=== PATIENT | male | born 1970 | race Caucasian/White ===

== ENCOUNTER 2020-03-29 11:29 | Emergency (ER) | payer OTHER, SELFPAY ==
--- NOTE | ~2020-03-29 | US_ITS ---
EXAMINATION: US venous doppler [facility] EXAM DATE: 03/29/2020 12:51 INDICATION: Left leg pain and swelling. TECHNIQUE: Multiple grayscale, color flow and Doppler images of the left lower extremity deep venous system were obtained and reviewed. There is no prior study for comparison. FINDINGS: The left common femoral, femoral and profunda veins demonstrate normal color flow, respirat ory variation, augmentation and compressibility. Compressibility, color flow confirmed within the le ft popliteal, posterior tibial, peroneal, and greater saphenous veins. IMPRESSION: 1. No left lower extremity deep venous thrombosis. Reviewed, dictated and finalized at location B. [facility]
[2020-03-29 11:47] VITALS: BP 138/93; PULSE 105; RESP 16; TEMP 36.4; O2SAT 98
--- NOTE | 2020-03-29 12:15 | ED.EXTPRO ---
HPI - Extremity Problem General Chief complaint: Extremity Problem,Nontraumatic Stated complaint: L LOWER LEG SWELLING Time Seen by Provider: 03/29/20 11:53 Source: patient Mode of arrival: ambulatory Limitations: no limitations History of Present Illness HPI Narrative: This is a 49 year old male that presents to the ER for left calf pain and swelling since yesterday. Reports no known injury or trauma. Reports he was concerned he may have a blood clot which prompted him to be seen. Denies fever, or erythema. Related Data Allergies Allergy/AdvReac Type Severity Reaction Status Date / Time No Known Allergies Allergy Unverified 05/29/16 02:29 Review of Systems Review of Systems: Narrative: CONSTITUTIONAL: Denies fever CARDIOVASCULAR: Denies chest pain RESPIRATORY: Denies dyspnea. SKIN: Denies rash MUSCULOSKELETAL: Reports myalgia. Denies joint pain All systems reviewed & are unremarkable except as noted in HPI and below PMFSH Past Medical History Medical History (Updated 03/29/20 @ 13:54 by Lizet Simental PA-C) History of ADHD History of anxiety History of hypertension Exam Narrative: Exam Narrative: GENERAL: Well-appearing, obese, and in no acute distress. HEAD: Normocephalic, atraumatic. EYES: EOMI. CHEST: Clear to auscultation. No respiratory distress. No wheezes rales or rhonchi HEART: Regular rate and rhythm. No murmur heard. Normal peripheral pulses. EXTREMITIES: Normal range of motion. No edema. Mild tenderness to palpation of the left calf. Normal DP pulses, normal sensation SKIN: Warm, dry, no rash. NEURO: No focal deficits. Alert and oriented x3. PSYCH: Normal mood and affect Course Consultations Consultation #1: Spoke with on-call primary, Dr. Garrison who will follow-up with patient. Date: 03/29/20 Time: 13:50 Vital Signs Vital signs: Vital Signs Temperature 97.5 F L 03/29/20 11:47 Pulse Rate 105 H 03/29/20 11:47 Respiratory Rate 16 03/29/20 11:47 Blood Pressure 138/93 H 03/29/20 11:47 Pulse Oximetry 98 03/29/20 11:47 Temperature 97.5 F L 03/29/20 11:47 Pulse Rate 105 H 03/29/20 11:47 Respiratory Rate 16 03/29/20 11:47 Blood Pressure 138/93 H 03/29/20 11:47 Pulse Oximetry 98 03/29/20 11:47 MDM - Extremity (Nontraumatic) MDM Narrative Medical decision making narrative: Patient presents the emergency department for left lower extremity swelling and pain. CBC without concerning findings. Metabolic panel with mild elevation in blood glucose, so hemoglobin A1c was obtained which was 7.6. This would be a new diagnosis of diabetes for the patient. Left lower extremity venous Doppler is without evidence of DVT. Patient's PCP recently retired, spoke with on-call primary who will follow-up with patient. Patient will be started on Metformin and was instructed to follow-up with primary provider. He was given warnings to return the ER Lab Data Attestation: I reviewed the patient's lab results. Result diagrams: 03/29/20 12:01 03/29/20 12:01 Labs: Lab Results 03/29/20 03/29/20 03/29/20 Range/Units 12: 12: 12:01 WBC 7.8 (4.5-10.0) K/mm3 RBC 5.69 (4.6-6.20) M/mm3 Hgb 16.9 (14.0-18.0) g/dL Hct 49.4 (42.0-52.0) % MCV 86.8 (80-100) fl MCH 29.7 (26-34) pg MCHC 34.2 (32-36) g/dl RDW 12.8 (11.5-14.5) % Plt Count 208 (150-375) k/mm3 MPV 9.2 (7.4-10.4) fl Immature Gran % (Auto) 1.0 H (0-0.5) % Neut % (Auto) 44.2 L (45.5-73.1) % Lymph % (Auto) 41.0 (18.3-44.2) % [place] % (Auto) 10.3 H (2.6-8.5) % Eos % (Auto) 2.3 (0-4.4) % Baso % (Auto) 1.2 (0.2-1.2) % Lymph # (Auto) 3.18 (0.9-3.2) K/mm3 [place] # (Auto) 0.8 H (0.1-0.6) K/mm3 Eos # (Auto) 0.2 (0-0.3) K/mm3 Baso # (Auto) 0.1 (0.0-0.1) K/mm3 Abs Immat Gran (auto) 0.08 H (0.00-0.031) K/mm3 Absolute Neuts (auto) 3.4 (1.3-6.7) K/mm3 Absolute Nucleated RBC 0.0 (0.0-0.012) K/mm3 Nucl
[2020-03-29 12:37] LABS: Basophils Absolute Auto 0.1 K/mm3 (0.0-0.1); Basophils Percent Auto 1.2 % (0.2-1.2); Eosinophils Absolute Auto 0.2 K/mm3 (0-0.3); Eosinophils Percent Auto 2.3 % (0-4.4); Hematocrit 49.4 % (42.0-52.0); Hemoglobin 16.9 g/dL (14.0-18.0); Immature Granulocyte Absolute 0.08 K/mm3 (0.00-0.031); Lymphocytes Absolute Auto 3.18 K/mm3 (0.9-3.2); Mean Corpuscular HGB Conc 34.2 g/dl (32-36); Mean Corpuscular Hemoglobin 29.7 pg (26-34); Mean Corpuscular Volume 86.8 fl (80-100); Mean Platelet Volume 9.2 fl (7.4-10.4); Monocytes Absolute Auto 0.8 K/mm3 (0.1-0.6); Monocytes Percent Auto 10.3 % (2.6-8.5); Neutrophils Absolute Auto 3.4 K/mm3 (1.3-6.7); Neutrophils Percent Auto 44.2 % (45.5-73.1); Platelet Count Result 208 k/mm3 (150-375); Red Blood Count 5.69 M/mm3 (4.6-6.20); Red Cell Distribution Width 12.8 % (11.5-14.5); White Blood Count 7.8 K/mm3 (4.5-10.0)
[2020-03-29 12:39] LABS: Anion Gap 4 mmol/L (8-16); Blood Urea Nitrogen 10 mg/dL (9-20); Calcium 9.2 mg/dL (8.4-10.2); Carbon Dioxide 33 mmol/L (22-30); Chloride 99 mmol/L (98-107); Estimated CRCL calculation 130 ml/min; Estimated Glomerular Filt Rate > 60; Glucose 201 mg/dL (75-110); Potassium 4.1 mmol/L (3.4-5.0); Sodium 136 mmol/L (137-145)
[2020-03-29 12:54] LABS: INR 0.9; Prothrombin Time 12.7 Seconds (11.1-14.7)
[2020-03-29 13:01] LABS: Partial Thromboplastin Time 27.8 SECONDS (22.3-36.8)
[2020-03-29 13:06] LABS: Hemoglobin A1C 7.6 % (<5.7)
== END 2020-03-29 14:09 | disposition home or self-care (01) ==
PROVIDERS: Physician Assistant; Emergency Provider Emergency Medicine; Referring Provider Internal Medicine
DX: M79.662 Pain in left lower leg (principal); E11.9 Type 2 diabetes mellitus without complications; F90.9 Attention-deficit hyperactivity disorder, unspecified type; F41.9 Anxiety disorder, unspecified; I10 Essential (primary) hypertension
CPT/HCPCS: 36415; 80048; 83036; 85025; 85610; 85730; 93971; 99284

== ENCOUNTER 2021-07-03 11:10 | Emergency (ER) | payer OTHER, SELFPAY ==
[2021-07-03 11:22] VITALS: BP 153/90; PULSE 97; RESP 16; TEMP 37; O2SAT 99
--- NOTE | 2021-07-03 11:51 | ED.DENTAL ---
HPI - Dental/Oral General Chief complaint: Dental/Oral Stated complaint: Left side of face is swollen Time Seen by Provider: 07/03/21 11:51 Source: patient Mode of arrival: ambulatory Limitations: no limitations History of Present Illness HPI Narrative: 51-year-old male presents with complaint of cheek swelling and Intermittent pain for 1 to 2 days. did take some ibuprofen last night and pain is improved today. Reports history of facial cellulitis 6 years ago. Denies dental and gum pain. No recent trauma. Afebrile. Does have a dentist for follow-up. No difficulty swallowing. Does have some pain if he chews on left side. States that pain is in left cheek and comes down underneath his jaw. All systems reviewed and negative except as noted above. Related Data Allergies Allergy/AdvReac Type Severity Reaction Status Date / Time No Known Allergies Allergy Unverified 05/29/16 02:29 Review of Systems Review of Systems: CONSTITUTIONAL: Denies fever, chills, or sweats. EYES: Denies visual changes, redness, or discharge. ENT: Denies rhinorrhea, congestion, sore throat, or otalgia. Reports swelling and pain to left cheek. CARDIOVASCULAR: Denies chest pain, palpitations, or edema. RESPIRATORY: Denies cough or dyspnea. GASTROINTESTINAL: Denies abdominal pain, nausea, vomiting, or diarrhea. GENITOURINARY: Denies dysuria or hematuria. SKIN: Denies rash or itching. MUSCULOSKELETAL: Denies back pain, joint pain, or myalgia. NEUROLOGIC: Denies headache, numbness, or weakness. PSYCHIATRIC: Denies anxiety or depression. All other systems reviewed are negative, except as documented in HPI. [facility] Past Medical History Medical History (Updated 07/03/21 @ 11:58 by Leslie Asencio NP) History of ADHD History of anxiety History of hypertension Comments At time of signature, agree with nursing past medical, surgical, social and family history. There is no relevant family history pertinent to the presenting complaint. Exam Narrative: GENERAL: This is a well-nourished, well-developed patient, in no apparent distress. HEAD: normocephalic, atraumatic. There is enlargement of left parotid gland with tenderness on palpation. There is no erythema or warmth to skin concerning for cellulitis. There is no fluctuance concerning for abscess. EYES: PERRL. Sclera clear/white. Vision is grossly intact. EARS: External ears normal, auditory canals clear and without drainage, TMs normal without perforation. Hearing grossly intact. NOSE: External nose normal with no obvious nasal discharge, nares without redness, no rhinorrhea. THROAT: Mucous membranes moist, posterior pharynx clear. NECK: Neck supple, non-tender without cervical lymphadenopathy, masses or thyromegaly. There is some enlargement and tenderness of salivary glands to left side. CARDIOVASCULAR: Regular rate and rhythm without murmurs, gallops, or rubs. RESPIRATORY: Clear to auscultation. Breath sounds equal bilaterally. No wheezes, rales, or rhonchi. SKIN: warm, Dry, intact with no suspicious lesions or rash, good texture and turgor. NEURO: awake, alert, and oriented to person, place and time. There were no obvious focal neurologic abnormalities. EXTREMITIES: Normal range of motion to all extremities. Course Course Level of Care: Express Care Visit Vital Signs Vital signs: Vital Signs Temperature 37.0 C 07/03/21 11:22 Pulse Rate 97 07/03/21 11:22 Respiratory Rate 16 07/03/21 11:22 Blood Pressure 153/90 H 07/03/21 11:22 Pulse Oximetry 99 07/03/21 11:22 Temperature 37.0 C 07/03/21 11:22 Pulse Rate 97 07/03/21 11:22 Respiratory Rate 16 07/03/21 11:22 Blood Pressure 153/90 H 07/03/21 11:22 Pulse Oximetry 99 07/03/21 11:22 Reviewed MDM - Dental/Oral MDM Narrative Medical decision making narrative: Patient is aware of diagnosis, understands and agrees to treatment plan. Anticipatory guidance given. Patient agrees to follow-up as directed and is jareth
== END 2021-07-03 12:03 | disposition home or self-care (01) ==
PROVIDERS: Emergency Provider Nurse Practitioner Family; PCP Registered Nurse
DX: K11.21 Acute sialoadenitis (principal); I10 Essential (primary) hypertension
CPT/HCPCS: 99213; G0463

== ENCOUNTER 2022-10-08 03:45 | Emergency (ER) | payer OTHER, SELFPAY ==
[2022-10-08] VITALS (12 sets, daily range): BP systolic 149–168; BP diastolic 88–98; PULSE 75–96; RESP 12–15; TEMP 36.6; O2SAT 93–100
--- NOTE | ~2022-10-08 | CT_ITS ---
EXAMINATION: CT abdomen pelvis wo con DATE: 10/08/2022 04:27 INDICATION: Left kidney stone. TECHNIQUE: Computed tomography (CT) of the abdomen and pelvis was performed without intravenous contr ast. Automated exposure control and iterative reconstruction technique were employed. The dose-length product was 1357.73 mGy-cm. COMPARISON: CT abdomen and pelvis 05/29/2016 FINDINGS: The visualized portions of the lung bases are clear without pneumonia or pleural effusion. The heart size is normal. No pericardial effusion. The liver, gallbladder, spleen, pancreas, and adre nal glands are normal. There are four 1-2 mm stones in right kidney. There are 3 stones in left kidne y measuring up to 5 mm. There is mild left hydronephrosis. There is a 5 mm stone in proximal left ure ter. The prostate is mildly enlarged. There are bilateral inguinal hernias containing fat. There are no dilated loops of bowel. The appendix is normal. There are no pathologically enlarged lymph nodes. There is no free intraperitoneal fluid. There is mild thoracic and lumbar spondylosis. IMPRESSION: 1. 5 mm stone in proximal left ureter with mild left hydronephrosis. 2. Bilateral nonobstructing kidney stones. Reviewed, dictated and finalized at location A.
--- NOTE | 2022-10-08 04:04 | PC.NURSE ---
Patient stated he has not been able to urinate much and when he has it has been dribbles.
[2022-10-08 04:05] LABS: Basophils Absolute Auto 0.1 K/mm3 (0.0-0.1); Basophils Percent Auto 0.6 % (0.2-1.2); Eosinophils Absolute Auto 0.2 K/mm3 (0-0.3); Eosinophils Percent Auto 1.7 % (0-4.4); Hematocrit 46.5 % (42.0-52.0); Immature Granulocyte Absolute 0.06 K/mm3 (0.00-0.031); Immature Granulocyte Percent A 0.5 % (0-0.5); Lymphocytes Absolute Auto 2.53 K/mm3 (0.9-3.2); Lymphocytes Percent Auto 21.4 % (18.3-44.2); Mean Corpuscular HGB Conc 34.4 g/dl (32-36); Mean Corpuscular Hemoglobin 30.8 pg (26-34); Mean Corpuscular Volume 89.4 fl (80-100); Mean Platelet Volume 8.9 fl (7.4-10.4); Monocytes Absolute Auto 1.1 K/mm3 (0.1-0.6); Neutrophils Absolute Auto 7.9 K/mm3 (1.3-6.7); Neutrophils Percent Auto 66.8 % (45.5-73.1); Platelet Count Result 206 k/mm3 (150-375); Red Cell Distribution Width 12.8 % (11.5-14.5); White Blood Count 11.9 K/mm3 (4.5-10.0)
[2022-10-08] MEDS: SODIUM CHLORIDE 0.9% IV 1,000 ML 999 ML IV CONT (04:11)
[2022-10-08] MEDS: ONDANSETRON INJ 4 MG/2 ML VIAL IV PUSH (04:12)
[2022-10-08] MEDS: HYDROmorphone HCL INJ (*CRX) 1 MG/ML SYR 0.5 MG IV PUSH (04:13)
[2022-10-08] MEDS: ACETAMINOPHEN 500 MG TABLET 1000 MG PO (04:14)
[2022-10-08 04:16] LABS: Alanine Aminotransferase 32 U/L (6-50); Albumin Level 4.3 g/dL (3.5-5.1); Alkaline Phosphatase 57 U/L (38-126); Anion Gap 8 mmol/L (8-16); Aspartate Amino Transferase 26 U/L (17-59); Bilirubin,Total 0.4 mg/dL (0.2-1.3); Blood Urea Nitrogen 11 mg/dL (9-20); Calcium 8.7 mg/dL (8.4-10.2); Carbon Dioxide 22 mmol/L (22-30); Chloride 103 mmol/L (98-107); Estimated CRCL calculation 98 ml/min; Estimated Glomerular Filt Rate > 60; Glucose 143 mg/dL (65-110); Potassium 4.2 mmol/L (3.4-5.0); Sodium 133 mmol/L (137-145)
[2022-10-08] MEDS: HYDROmorphone HCL INJ (*CRX) 1 MG/ML SYR IV PUSH (04:37)
--- NOTE | 2022-10-08 05:14 | ED.GENADULT ---
HPI - General Adult General Chief complaint: Urogenital-Male Stated complaint: kidney stone ? Time Seen by Provider: 10/08/22 03:57 History of Present Illness HPI narrative: this is a 52-year-old male history of recurrent kidney stones presenting ED with flank pain. Patient said the pain started yesterday around 8:00 p.m.. He is in the left flank and radiates to his groin. It is 10 out 10 intensity constant. He feels like this is similar to the previous kidney stones he has had in the past. There are no exacerbating alleviating symptoms. He did have 1 episode of nausea and vomiting. Denies fever chills dysuria or hematuria. Patient did require lithotripsy and stent placement in the past. Related Data Allergies Allergy/AdvReac Type Severity Reaction Status Date / Time No Known Allergies Allergy Unverified 11/14/21 13:27 [facility] Past Medical History Medical History (Updated 10/08/22 @ 05:25 by Mati Perez MD) History of ADHD History of anxiety History of hypertension Exam Narrative: APPEARANCE: patient is pacing around the room like he can not get comfortable Head: atraumatic. EYES: EOMI, NOSE: Atraumatic NECK: Trachea midline RESPIRATORY: No increased rate of breathing clear to auscultation CARDIOVASCULAR: RRR, ABDOMINAL: left CVA tenderness, abdomen is soft no guarding or rebound MUSCULOSKELETAl: No obvious deformities NEURO: Alert. Moving 4/4 extremities SKIN:: Warm, dry. Normal color PSYCHIATRIC: Normal affect Course Vital Signs Vital signs: Vital Signs Temperature 97.8 F 10/08/22 03:50 Pulse Rate 96 10/08/22 03:50 Respiratory Rate 15 10/08/22 03:50 Blood Pressure 149/98 H 10/08/22 03:50 Pulse Oximetry 100 10/08/22 03:50 Oxygen Delivery Room Air 10/08/22 03:50 Temperature 97.8 F 10/08/22 03:50 Pulse Rate 96 10/08/22 03:50 Respiratory Rate 15 10/08/22 03:50 Blood Pressure 149/98 H 10/08/22 03:50 Pulse Oximetry 100 10/08/22 03:50 Oxygen Delivery Room Air 10/08/22 03:50 Medical Decision Making [facility] Narrative Medical decision making narrative: -Presentation: 52-year-old male presenting with flank pain. 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 Metabolic panel normal UA not indicative of infection. CT abdomen pelvis showed a 5mm kidney stone with mild hydronephrosis on the left. -Interventions: Dilaudid 0.5 -> 1.0mg , tylenol 1000mg, zofran 4 mg. 15 mg toradol. -Shared decision making / Disposition: patient's pain was controlled in the ED. Patient will be discharged with appropriate medications and urology follow-up. -RX Motrin, Tylenol, oxycodone, Flomax, Zofran Vital Signs Vital Signs: Vital Signs Temperature 97.8 F 10/08/22 03:50 Pulse Rate 96 10/08/22 03:50 Respiratory Rate 15 10/08/22 03:50 Blood Pressure 149/98 H 10/08/22 03:50 Pulse Oximetry 100 10/08/22 03:50 Oxygen Delivery Room Air 10/08/22 03:50 Temperature 97.8 F 10/08/22 03:50 Pulse Rate 96 10/08/22 03:50 Respiratory Rate 15 10/08/22 03:50 Blood Pressure 149/98 H 10/08/22 03:50 Pulse Oximetry 100 10/08/22 03:50 Oxygen Delivery Room Air 10/08/22 03:50 Lab Data 10/08/22 04:01 10/08/22 04:01 Labs: Lab Results 10/08/22 10/08/22 Range/Units 04:01 05:35 WBC 11.9 H (4.5-10.0) K/mm3 RBC 5.20 (4.6-6.20) M/mm3 Hgb 16.0 (14.0-18.0) g/dL Hct 46.5 (42.0-52.0) % MCV 89.4 (80-100) fl MCH 30.8 (26-34) pg MCHC 34.4 (32-36) g/dl RDW 12.8 (11.5-14.5) % Plt Count 206 (150-375) k/mm3 MPV 8.9 (7.4-10.4) fl Immature Gran % (Auto) 0.5 (0-0.5) % Neut % (Auto) 66.8 (45.5-73.1
[2022-10-08 05:46] LABS: Appearance Urine Clear (Clear); Bacteria Urine None Seen /hpf; Bilirubin Urine Negative (Negative); Blood Urine 3+ (Negative); Color Urine Yellow (Yellow); Glucose Urine UA Negative (Negative); Ketones Urine Negative (Negative); Leukocyte Esterase Ur Negative LEU/UL (Negative); Nitrate Urine Negative (Negative); Non Pathogenic Casts 0-2; Protein Urine Trace mg/dL (Negative); Specific Grav Ur 1.013 (1.001-1.035); Squamous Epithelial Cell Urine None seen /hpf (Few); Urobilinogen Urine 0.2 mg/dL (<2.0); WBC Urine 0-5 /hpf; pH Urine 5.5 (5.0-9.0)
[2022-10-08 05:52] LABS: Add Urine Microscopic? YES
[2022-10-08] MEDS: KETOROLAC 15 MG/ML VIAL (*BKC) IV PUSH (06:20)
== END 2022-10-08 06:27 | disposition home or self-care (01) ==
PROVIDERS: Emergency Provider Emergency Medicine; PCP Registered Nurse
DX: N13.2 Hydronephrosis with renal and ureteral calculous obstruction (principal); I10 Essential (primary) hypertension; E11.9 Type 2 diabetes mellitus without complications; Z87.442 Personal history of urinary calculi; Z79.84 Long term (current) use of oral hypoglycemic drugs
CPT/HCPCS: 36415; 74176; 80053; 81001; 85025; 96361; 96374; 96375; 99284; A9270; J1170; J1885; J2405; J7030

== ENCOUNTER 2023-12-29 15:07 | Emergency (ER) | payer OTHER, SELFPAY ==
[2023-12-29 15:14] VITALS: BP 129/79; PULSE 103; RESP 18; TEMP 36.8; O2SAT 100
--- NOTE | 2023-12-29 15:28 | ED.URI ---
HPI - URI/Sore Throat General Chief Complaint: Upper Respiratory Infection Stated Complaint: Sinus Time Seen by Provider: 12/29/23 15:29 Source: patient, RN notes reviewed and old records reviewed Mode of arrival: ambulatory Limitations: no limitations History of Present Illness HPI Narrative: Patient presents with complaints of sinus pain and congestion, postnasal drainage, now chest congestion. He reports symptoms began a couple of weeks ago. He reports that he has had some night sweats, has not checked to see what his temperature has been running. He has type 2 diabetes, reports blood glucose has remained well controlled. He has been taking Tylenol and ibuprofen for his sinus pain, has also done sinus rinse. He reports minimal relief with either measure. He reports that cough is worsening. Denies any shortness of breath. No other concerns or complaints at this time. Denies all injury and trauma Related Data Home Medications Medication Instructions Recorded Confirmed dextroamphetamine-amphetamine 10 10 mg PO DAILY 12/29/23 12/29/23 mg tablet dextroamphetamine-amphetamine 20 20 mg PO DAILY 12/29/23 12/29/23 mg tablet lisinopril 10 mg tablet 10 mg PO DAILY 12/29/23 12/29/23 tamsulosin 0.4 mg capsule 0.4 mg PO DIRECTED 12/29/23 12/29/23 tirzepatide 7.5 mg/0.5 mL 7.5 mg subcut DIRECTED 12/29/23 12/29/23 subcutaneous pen injector (Mounjaro) trazodone 50 mg tablet 50 mg PO DIRECTED 12/29/23 12/29/23 Allergies Allergy/AdvReac Type Severity Reaction Status Date / Time No Known Allergies Allergy Verified 12/29/23 15:16 Review of Systems Review of Systems: All systems reviewed & are unremarkable except as noted in HPI and below Constitutional: Constitutional: Reports no additional constitutional complaints ENT: Reports system reviewed and no additional complaints, except as documented, Reports nasal congestion, Reports nasal discharge, Reports sinus pain and Reports sinus pressure Cardiovascular: Cardiovascular: Reports no additional cardiovascular complaints Respiratory: Respiratory: Reports no additional respiratory complaints, Reports chest congestion and Reports cough Gastrointestinal: Gastrointestinal: Reports no additional gastrointestinal complaints PMFSH Past Medical History Medical History History of ADHD History of anxiety History of hypertension Comments At the time of my signature, I reviewed and agree with the nursing past medical, surgical, social, and family history. There is no relevant family history pertinent to the patient complaint. Exam Const: General: cooperative, no acute distress, alert and awake Orientation/consciousness: oriented to person, oriented to place and oriented to time HENMT: Head: normal to inspection Face/Nose/Sinus: sinus tenderness Face and sinus: sinus tenderness maxillary Mouth: Yes moist mucous membranes Throat: posterior oropharynx abnormal erythema and postnasal drainage Other: Nasally voice noted Resp: Effort & Inspection: normal respiratory effort and able to speak in complete sentences Auscultation: clear to auscultation bilaterally, no crackles, no rales, no rhonchi and no wheezes Cardio: Palpation: normal PMI Rate: regular rate Rhythm: regular rhythm Heart sounds: S1 normal heart sound present and S2 normal heart sound present Neuro: General: oriented to person, oriented to place and oriented to time Cranial nerves: Yes CN's II-XII intact bilaterally Psych: Appearance: grossly normal Thought process: Normal thought process present Insight: Good insight present (Psych) Judgement: Good judgement present (Psych) Course Course Level of Care: Express Care Visit Vital Signs Vital signs: Vital Signs Temperature 98.2 F 12/29/23 15:14 Pulse Rate 103 H 12/29/23 15:14 Respiratory Rate 18 12/29/23 15:14 Blood Pressure 129/79 12/29/23 15:14 Pulse Oximetry 100 12/29/23 15:14 Oxygen Delivery Room Air 12/29/23 15:14 Temperature 98.2 F 12/29/23 15:14 Pulse Rate 103 H 12/29/23 15:14 Respiratory Rate 18 12/29/23 15:14 Blood Pressure 129/79 12/29/23 15:14 Pulse Oximetry 100 12/29/23 15:14 Oxygen Delivery Room Air 12/29/23 15:14 Reviewed MDM - URI/Sore Throat MDM Narrative Medical decision making narrative: Patient nontoxic appearing, no distress. History and exam consistent with sinusitis, will prescribe doxy. Patient is stable for outpatient treatment. Discharge instructions reviewed with patient, as well as provided in writing per nursing staff. The instructions also include specific and strict return/GO TO THE ER as well as f/u information. All questions have been answered, and the patient deny any further questions with discharge and discharge plan. Some parts of this dictation were generated by voice recognition software and may contain typographical and/or grammatical inaccuracies. Differential Diagnosis Differential diagnosis: Likely upper respiratory infection, otitis media, sinusitis, viral infection, bronchitis and influenza Medical Records Attestation: I reviewed the patient's medical records. Discharge Plan Discharge Clinical Impression: Sinusitis Qualifiers: Sinusitis location: maxillary Chronicity: acute Recurrence: not specified as recurrent Qualified Code(s): J01.00 - Acute maxillary sinusitis, unspecified Patient Disposition: Home, Self-Care Condition: Stable Instructions: Antibiotic Form, Sinusitis (ED) Additional Instructions: Take medications as prescribed. Follow with primary care provider. Emergency department for new or worse symptoms Patient Language: Sinhala Prescriptions: New doxycycline hyclate 100 mg capsule 100 mg PO BID Qty: 20 0RF prednisone 50 mg tablet 50 mg PO DAILY Qty: 3 0RF No Action dextroamphetamine-amphetamine 10 mg tablet 10 mg PO DAILY dextroamphetamine-amphetamine 20 mg tablet 20 mg PO DAILY lisinopril 10 mg tablet 10 mg PO DAILY Mounjaro 7.5 mg/0.5 mL pen injector 7.5 mg SUBCUT DIRECTED trazodone 50 mg tablet 50 mg PO DIRECTED tamsulosin 0.4 mg capsule 0.4 mg PO DIRECTED metformin 500 mg tablet 500 mg PO BID 14 Days Qty: 28 0RF Follow-up/Referrals: Marcella,NANDA Curry [Primary Care Provider] - 2 Weeks Time of Disposition: 15:39
== END 2023-12-29 15:55 | disposition home or self-care (01) ==
PROVIDERS: Emergency Provider Nurse Practitioner Family; PCP Registered Nurse
DX: J01.00 Acute maxillary sinusitis, unspecified (principal); I10 Essential (primary) hypertension; F90.9 Attention-deficit hyperactivity disorder, unspecified type
CPT/HCPCS: 99213; G0463